=== PATIENT | male | born 1975 | race Caucasian/White ===

== ENCOUNTER 2020-06-04 03:08 | Outpatient (CLI) | payer SELFPAY | END 2020-06-04 03:09 | disposition critical access hospital (66) | LOC: EMS 03:08 | PROVIDERS: ATTEND Surgery | DX: R06.6 Hiccough (principal); R07.9 Chest pain, unspecified; R11.0 Nausea | CPT/HCPCS: A0425; A0429 ==

== ENCOUNTER 2020-06-04 06:07 | Outpatient (CLI) | payer SELFPAY | END 2020-06-04 06:08 | disposition short-term general hospital (02) | LOC: EMS 06:07 | PROVIDERS: ATTEND Surgery | DX: I21.4 Non-ST elevation (NSTEMI) myocardial infarction (principal) | CPT/HCPCS: A0425; A0426 ==

== ENCOUNTER 2021-09-15 06:35 | Emergency (ER) | payer MEDICAID ==
[2021-09-15] MEDS ORDERED: DEXAMETHASONE 10 MG/ML VIAL PO STA (07:18)
[2021-09-15] MEDS ORDERED: KETOROLAC 60 MG/2 ML VIAL IM STA (07:18)
[2021-09-15] MEDS ORDERED: CHERRY SYRUP 10 ML UDC PO ONE (07:18)
--- NOTE | 2021-09-15 07:24 | ED Physician Documentation ---
PD HPI Fall - Stated complaint Stated Complaint: LT SIDE RIB/AB PX - Chief complaint Chief Complaint: Trauma Ch/Bk - History obtained from History obtained from: Patient - History of Present Illness Mechanism of injury: Lost balance Fall distance: Sitting position, 5 to 10ft Where injury occurred: Home Timing - onset: How many weeks ago (1) Injury(ies) location: Chest, Left Lower Extremity Quality of pain: Pain Associated symptoms: Other (wind knocked out). No: LOC, AMS, Amnesia, Seizures, Ear drainage, Nasal drainage, Neck pain, Weakness, Paresthesias, Dyspnea, Nausea / vomiting, Hematemesis, Abdominal distension Symptoms improve with: Rest Worsens with: Movement, Palpation Contributing factors: No: Anticoagulated, Intoxicated Similar symptoms before: Has not had sx before Recently seen: Not recently seen - Additional information Additional information: 46-year-old male reports that he he was in his tiny home sitting up on a ledge on the in the loft when he went to try to get off of the loft he missed the ladder and fell forward landing on his left side. He had the wind knocked out of him. He was not knocked unconscious, he has a bruise to the left hip area and has pain to the left chest wall. He states that he has been able to do his usual amount of work out in the yard over the past week until 2 days ago when the pain started to worsen. He is having some trouble getting a full deep breath now because it hurts to take deep breath. He has not otherwise been ill. Review of Systems Constitutional: denies: Fever, Chills Eyes: denies: Decreased vision Ears: denies: Ear pain Nose: denies: Congestion Throat: denies: Sore throat Cardiac: reports: Chest pain / pressure. denies: Palpitations, Pedal edema, Calf pain Respiratory: denies: Dyspnea, Cough, Wheezing GI: denies: Abdominal Pain, Nausea, Vomiting : denies: Dysuria, Frequency PD PAST MEDICAL HISTORY - Past Medical History Past Medical History: Yes Cardiovascular: Hypertension GI: GERD - Past Surgical History Past Surgical History: No - Present Medications Home Medications: Ambulatory Orders Medication Instructions Recorded Confirmed Cyclobenzaprine [Flexeril] 10 mg PO TID PRN #20 tablet 09/15/21 HYDROcod/ACETAM 5/325 [[place] 5/325] 1 - 2 tablet PO Q6H PRN #14 tablet 09/15/21 Metoprolol Succinate [Toprol Xl] 50 mg PO DAILY 09/15/21 09/15/21 Pantoprazole Sodium 40 mg PO DAILY 09/15/21 09/15/21 - Allergies Allergies/Adverse Reactions: Allergies Allergy/AdvReac Type Severity Reaction Status Date / Time No Known Drug Allergies Allergy Verified 09/15/21 06:47 - Social History Does the pt smoke?: Yes Smoking Status: Current every day smoker Does the pt have substance abuse?: No - Immunizations Immunizations are current?: Yes - POLST Patient has POLST: No PD ED PE NORMAL - Vitals Vital signs reviewed: Yes (hypertensive) - General General: Alert and oriented X 3, No acute distress, Well developed/nourished - HEENT HEENT: Atraumatic, PERRL, EOMI - Neck Neck: Supple, no meningeal sign, No bony TTP - Cardiac Cardiac: RRR, No murmur - Respiratory Respiratory: No respiratory distress, Clear bilaterally, Other (diminished breath sounds and tenderness to the left chest wall laterally) - Abdomen Abdomen: Normal bowel sounds, Soft, Non tender, Non distended, No organomegaly - Back Back: No CVA TTP, No spinal TTP - Derm Derm: Normal color, Warm and dry, No rash - Extremities Extremities: No deformity, No edema - Neuro Neuro: Alert and oriented X 3, external grinder 2-12 intact, No motor deficit, No sensory deficit, Normal speech Eye Opening: Spontaneous Motor: Obeys Commands Verbal: Oriented GCS Score: 15 - Psych Psych: Normal mood, Normal affect Results - Vitals Vitals: Vital Signs - 24 hr 09/15/21 06:41 Temperature 36.8 C Heart Rate 87 Respiratory 18 Rate Blood Pressure 150/69 H O2 Saturation 100 Oxygen O2 Source Room air - Rads (name of study) ribs Radiology: Prelim report reviewed (Impression: No displaced rib fracture is identified. No pneumothorax.), EMP read indepedently, See rad report Procedures - Bedside sono Bedside sono by EMP: With use bedside ultrasound the left upper quadrant is imaged and there is no free fluid in the splenorenal recess. PD MEDICAL DECISION MAKING - ED course Complexity details: reviewed results, re-evaluated patient, considered differential, d/w patient ED course: 46-year-old male with a fall of nearly 8 feet contused his chest wall without fracturing ribs were causing a pneumothorax. He has come to the emergency department predictably after a week of pain and he has improvement with dexamethasone and Toradol. We will place him on a short course of pain medication muscle relaxant I did check his spleen with a bedside ultrasound finding no evidence of fluid at the splenorenal recess. Departure - Departure Disposition: 01 Home, Self Care Clinical Impression: Chest wall contusion Qualifiers: Encounter type: initial encounter Laterality: left Qualified Code(s): S20.212A - Contusion of left front wall of thorax, initial encounter Condition: Stable Instructions: ED Contusion Rib, ED Contusion Chest Wall Follow-Up: Diogenes Norton MD [Primary Care Provider] - Prescriptions: Cyclobenzaprine [Flexeril] 10 mg PO TID PRN #20 tablet PRN Reason: Spasms HYDROcod/ACETAM 5/325 [[place] 5/325] 1 - 2 tablet PO Q6H PRN #14 tablet PRN Reason: Pain
--- NOTE | 2021-09-15 07:48 | XRAY Report ---
PROCEDURE: Ribs w/PA Chest LT INDICATIONS: chest wall contusion TECHNIQUE: 3 views of the left ribs were acquired, along with a single view chest. COMPARISON: Correlation is made with chest radiograph, 06/04/2020 FINDINGS: Surgical changes and devices: None. Bones and chest wall: No fractures or dislocations. No suspicious bony lesions. Overlying soft tis sues appear unremarkable. Lungs and pleura: No pleural effusions or pneumothorax. Lungs appear clear. Mediastinum: Mediastinal contours appear normal. Heart size is normal. IMPRESSION: No displaced rib fracture is identified. No pneumothorax. Reviewed by: Blair Jolly MD on 09/15/2021 6:47 AM [facility] Approved by: Blair Jolly MD on 09/15/2021 6:47 AM [facility] Station ID: [id number]
[2021-09-15 08:18] VITALS: BP 132/79
== END 2021-09-15 08:19 | disposition home or self-care (01) ==
LOC: ED 06:35
DX: S20.212A Contusion of left front wall of thorax, initial encounter (principal); W17.89XA Other fall from one level to another, initial encounter; Y92.009 Unspecified place in unspecified non-institutional (private) residence as the place of occurrence of the external cause; F17.200 Nicotine dependence, unspecified, uncomplicated
CPT/HCPCS: 71101; 96372; 99283; 99284; A9270

== ENCOUNTER 2023-06-27 13:47 | Emergency (ER) | payer MEDICAID ==
--- NOTE | 2023-06-27 14:00 | ED Physician Documentation ---
PD HPI UPPER EXT INJURY - Stated complaint Stated Complaint: LT FING INJ - Chief complaint Chief Complaint: Ext Problem - History obtained from History obtained from: Patient - History of Present Illness Location: Left, Finger (ring) Type of injury: Twist (he was reaching up lifting object and pushed it with hands, feeling an abrupt pop feeling in left finger. Pain to move it and unable to extend at the DIP joint.) Timing - onset: Today Timing - details: Abrupt onset, Still present Worsened by: Moving Associated symptoms: Weakness (unable to extend finger at DIP joint.), Swelling. No: Numbness Similar symptoms before: Has not had sx before Review of Systems Skin: denies: Abrasion (s), Laceration (s) PD PAST MEDICAL HISTORY - Past Medical History Cardiovascular: Hypertension GI: GERD - Past Surgical History Past Surgical History: No - Present Medications Home Medications: Ambulatory Orders Medication Instructions Recorded Confirmed Cyclobenzaprine [Flexeril] 10 mg PO TID PRN #20 tablet 09/15/21 HYDROcod/ACETAM 5/325 [[place] 5/325] 1 - 2 tablet PO Q6H PRN #14 tablet 09/15/21 Metoprolol Succinate [Toprol Xl] 50 mg PO DAILY 09/15/21 09/15/21 Pantoprazole Sodium 40 mg PO DAILY 09/15/21 09/15/21 - Allergies Allergies/Adverse Reactions: Allergies Allergy/AdvReac Type Severity Reaction Status Date / Time No Known Drug Allergies Allergy Verified 09/15/21 06:47 - Social History Does the pt smoke?: Yes Smoking Status: Current every day smoker Does the pt have substance abuse?: No - Immunizations Immunizations are current?: Yes - POLST Patient has POLST: No PD ED PE NORMAL - Vitals Vital signs reviewed: Yes - General General: Alert and oriented X 3, Well developed/nourished - Extremities Extremities: Other (left ring finger with DIP joint having distal phalanx in flexion and he is unable to extend it. Passive extension without pain. Mild papa ma in that joint. ) - Neuro Neuro: Alert and oriented X 3, No sensory deficit Results - Vitals Vitals: Vital Signs - 24 hr 06/27/23 13:52 Temperature 37 C Heart Rate 83 Respiratory 20 Rate Blood Pressure 166/104 H O2 Saturation 98 Oxygen O2 Source Room air - Rads (name of study) left ring finger Relevant Findings:: Prelim report reviewed, EMP independent interpretation of test (no fractures.) PD Medical Decision Making - ED course Complexity details: reviewed results, considered differential (extensor tendon disruption at DIP bosch. I talked with patient about the injury and common treatment plan of splinting. ), d/w patient Departure - Departure Disposition: 01 Home, Self Care Clinical Impression: Extensor tendon disruption, Mallet finger of left finger(s) Condition: Stable Record reviewed to determine appropriate education?: Yes Instructions: ED Fx Mallet Finger Follow-Up: Diogenes Norton MD [Primary Care Provider] - [facility] [Provider Group] Comments: Keep the finger splinted continually and full extension at the involved joint. This provides an approximation of the tendon with its attachment point to allow for healing of it in place. Need to have a splinted for typically about 4 weeks. The central slip or central portion of the extensor tendon is attached at the more proximal joint and along the back part of the finger and that prevents retraction of the tendon. This allows for the ability of it to heal with just splinting. Occasionally this is not sufficient for it to heal in place and may need repair instead. Follow-up with the orthopedic office in about 1 and half to 2 weeks to see how it is doing along the way. There should start to be some attachment happening at that point. Ice elevate and rest it often today and tomorrow to reduce swelling. Tylenol or ibuprofen if needed for pains. Call Thursday for an appointment with orthopedics again for about 1-1/2 to 2 weeks from now. Your x-ray is normal without any signs of fracture. Forms: PCP List Discharge Date/Time: 06/27/23 14:43
[2023-06-27 14:07] VITALS: BP 166/104; O2SAT 98
--- NOTE | 2023-06-27 15:32 | XRAY Report ---
PROCEDURE: Finger(s) LT INDICATIONS: finger injury ring finger TECHNIQUE: AP hand, 2 views of the fourth finger(s) acquired. COMPARISON: None. FINDINGS: Bones: No fractures or dislocations. No suspicious bony lesions. Fourth PIP held in flexion Soft tissues: No suspicious soft tissue calcifications or masses. IMPRESSION: Fourth PIP in flexion. No fracture or foreign body. Reviewed by: Luis Lau MD on 06/27/2023 2:30 PM [facility] Approved by: Luis Lau MD on 06/27/2023 2:30 PM [facility] Station ID: [id number]
== END 2023-06-27 14:43 | disposition home or self-care (01) ==
LOC: ED 13:47
DX: S66.315A Strain of extensor muscle, fascia and tendon of left ring finger at wrist and hand level, initial encounter (principal); X50.1XXA Overexertion from prolonged static or awkward postures, initial encounter; Y93.89 Activity, other specified; M20.012 Mallet finger of left finger(s); F17.200 Nicotine dependence, unspecified, uncomplicated
CPT/HCPCS: 99283

== ENCOUNTER 2023-10-30 00:14 | Emergency (ER) | payer OTHER, MEDICAID ==
[2023-10-30 02:04] VITALS: BP 154/91; O2SAT 97
[2023-10-30] MEDS ORDERED: KETOROLAC 30 MG/ML VIAL IM STA (02:23)
[2023-10-30] MEDS ORDERED: CYCLOBENZAPRINE 10 MG Prepack 2 PO PRN (02:23)
--- NOTE | 2023-10-30 02:30 | ED Physician Documentation ---
History of Present Illness - Stated complaint Stated Complaint: LOW BACK PX - Chief complaint Chief Complaint: Back Pain - History obtained from History obtained from: Patient - Additonal information Additional information: 48yM presents with new onset R low back pain X 1 week intermittent after slipping while at work. patient states he had sudden onset pain that resolved then returned. denies hematuria, fever, midline pain. unresponsive to ibuprofen PD PAST MEDICAL HISTORY - Past Medical History Past Medical History: Yes Cardiovascular: Hypertension GI: GERD - Past Surgical History Past Surgical History: No - Present Medications Home Medications: Ambulatory Orders Medication Instructions Recorded Confirmed Metoprolol Succinate [Toprol Xl] 50 mg PO DAILY 09/15/21 10/30/23 Omeprazole Magnesium 20 mg PO DAILY 10/30/23 10/30/23 - Allergies Allergies/Adverse Reactions: Allergies Allergy/AdvReac Type Severity Reaction Status Date / Time No Known Drug Allergies Allergy Verified 10/30/23 00:18 - Social History Does the pt smoke?: No Smoking Status: Former smoker Does the pt have substance abuse?: No - Immunizations Immunizations are current?: Yes - POLST Patient has POLST: No PD ED PE NORMAL - Vitals Vital signs reviewed: Yes - General General: Alert and oriented X 3, No acute distress, Well developed/nourished - HEENT HEENT: Atraumatic - Back Back: No CVA TTP, No spinal TTP, Other (R lower back discomfort to palpation in muscle distribution) - Derm Derm: Normal color, Warm and dry Results - Vitals Vitals: Vital Signs - 24 hr 10/30/23 10/30/23 00:18 02:00 Temperature 36.5 C Heart Rate 88 96 Respiratory 16 16 Rate Blood Pressure 150/88 H 154/91 H O2 Saturation 98 97 Oxygen O2 Source Room air PD Medical Decision Making - ED course ED course: 48yM presents with R lower back pain that appears to be 2/2 muscle spasm. no CVA ttp therefore doubt kidney stones. no midline pain so no spinal pathology. symptomatic care discussed. IM toradol given with relief. Flexeril prepack provided. return precautions given. plan to f/u with pcp. Departure - Departure Disposition: 01 Home, Self Care Clinical Impression: Back pain, Muscle spasm Condition: Stable Instructions: ED Low Back Pain Injury Comments: You were seen in the emergency department for lower back spasm. Please follow-up with your primary care provider and return to the emergency department if you have any new or worsening symptoms or other concerns.
== END 2023-10-30 02:41 | disposition home or self-care (01) ==
LOC: ED 00:14
DX: M54.50 Low back pain, unspecified (principal); M62.830 Muscle spasm of back; W01.0XXA Fall on same level from slipping, tripping and stumbling without subsequent striking against object, initial encounter; Y99.0 Civilian activity done for income or pay; Z87.891 Personal history of nicotine dependence
CPT/HCPCS: 1040M; 96372; 99282; 99283